=== PATIENT | female | born 1960 | race Caucasian/White ===

== ENCOUNTER 2023-08-05 09:45 | Day surgery (SDC) | payer OTHER ==
[2023-08-04 08:39] VITALS: BMI 26.1
[2023-08-05] MEDS ORDERED: CEFAZOLIN 2 GM VIAL ONE (11:01)
[2023-08-05] MEDS ORDERED: Bupivacaine PF 0.5% 30 ML VIAL ONE (11:01)
[2023-08-05] MEDS ORDERED: Dexamethasone 20 MG/5 ML VIAL ONE (11:48)
[2023-08-05] MEDS ORDERED: PROPOFOL 20 ML ONE (11:48)
[2023-08-05] MEDS ORDERED: Ondansetron PF 4 MG/2 ML Vial ONE (11:48)
[2023-08-05] MEDS ORDERED: Midazolam HCl 2 mg/2 ml Vial ONE (11:48)
[2023-08-05] MEDS ORDERED: fentaNYL 50 mcg/mL 1 mL Vial ONE (11:48)
[2023-08-05] MEDS ORDERED: Lidocaine 1% PF 5 ML VIAL ONE (11:48)
[2023-08-05] MEDS ORDERED: Ketorolac Tromethamine 30 MG (1 mL) VIAL ONE (11:48)
[2023-08-05] MEDS ORDERED: Clindamycin/D5W 900 mg/50 ml Premix Bag ONE (12:01)
== END 2023-08-05 16:10 | disposition home or self-care (01) ==
LOC: CSHSDC 09:45
PROVIDERS: ATTEND Podiatrist Foot & Ankle Surgery
PROC: 0SGM0JZ Fusion of Right Metatarsal-Phalangeal Joint with Synthetic Substitute, Open Approach (ICD-10-PCS; principal; 2023-08-05)
PROC: 0QSN04Z Reposition Right Metatarsal with Internal Fixation Device, Open Approach (ICD-10-PCS; principal; 2023-08-05)
PROC: 0QSN0ZZ Reposition Right Metatarsal, Open Approach (ICD-10-PCS; principal; 2023-08-05)
DX: M20.21 Hallux rigidus, right foot (principal); M20.41 Other hammer toe(s) (acquired), right foot; M77.41 Metatarsalgia, right foot; Z88.0 Allergy status to penicillin; Z88.2 Allergy status to sulfonamides; Z79.899 Other long term (current) drug therapy
CPT/HCPCS: C1713; J0665; J1100; J1885; J2250; J2405; J2704; J3010; J3490